=== PATIENT | male | born 1960 | race African-American/Black ===

== ENCOUNTER 2017-03-10 17:34 | Emergency (ER) | payer OTHER ==
[~2017-03-10] VITALS: Ht 177.8 cm; Wt 92.5 kg
[2017-03-10 18:36] VITALS: BP 134/93
[2017-03-10 18:40] LABS: BILIRUBIN,URINE MODERATE (NEG); GLUCOSE,URINE NEGATIVE (NEG); NITRITE,URINE POSITIVE (NEG); PH,URINE 5.5; PROTEIN,URINE NEGATIVE (NEG-TRACE)
--- NOTE | 2017-03-10 18:48 | PHYS DOC ---
Adult General Chief Complaint Chief Complaint: ABDOMINAL PAIN HPI HPI Patient is a 56 year old gentleman who has no significant past medical history who presents here today secondary to abdominal pain that is greatest in the suprapubic region. Patient reports he had abdominal pain now for approximately 4 month. Patient reports that he is gotten a couple x-rays recently last one being today by his primary care physician which revealed that he was for what he describes full stool and was sent here secondary to assistance with hydration. Patient denies any history of hypertension diabetes liver longer kidney pals. Patient has any surgeries in the past. Patient reports he drinks daily. Patient reports that lasted for approximate 4 in the morning today. Patient denies any tobacco or drugs. Patient is allergic to penicillin and morphine. Eyes any diagnosis of any alcohol related liver disease in the past. Patient reports she's had upper and lower GI scope in the past that revealed polyps but no other acute pathology. Patient denies any fevers shakes chills. Patient reports she's had nausea vomiting for the last 2-3 days and has been unable able to keep down liquids. Patient reports she's had diarrhea over the last couple days. Patient reports 2 loose bowel movements today. Patient reports that he was sent in by his primary care physician to assist with hydration and assist with giving him mag citrate. She did not feel that he will be able to keep down Gatorade and mag citrate as an outpatient. Patient denies any chest pain or shortness of breath. Patient has any cough cold or runny nose. Patient reports he does have hayfever and has had a fever symptoms over the last several days. Any new medications. Patient denies any new over-the- counter medications. Patient has any melena or bright red blood per rectum. Patient denies any coffee-ground emesis or hematochezia. Patient's physical exam was unremarkable. Patient's abdomen was soft nontender no rebound or guarding. Patient had normal active bowel sounds. Patient not have any tenderness to deep palpation. Patient's spleen and liver within normal size. She does not have any stigmata of end-stage liver disease or ascites. Patient does not present with any signs or symptoms of be consistent with an acute surgical abdomen. Patient's heart was regular rate and rhythm. His lungs were clear without any wheezing rales or rhonchi. His extremities revealed no clubbing cyanosis or edema. EKG reveals normal sinus rhythm at a heart rate of [address]-T wave abnormality is without any evidence of acute ST elevation DE as interpreted by Dr. Sears. Patient does have poor R-wave progression in leads V1 through V5 which could be consistent with an age-indeterminate anteroseptal wall DE likely old. Assessment and plan: This is a 56-year-old gentleman who presents here today complaining of abdominal discomfort with an abnormal obstruction series per his PCP. Although I do not have that report the patient describes an x-ray that is consistent with constipation rather than x-ray consistent with a small bowel obstruction. Given the patient's symptomatology and the abnormal x-ray and be sent to the ER patient today will have labs drawn including a CBC, chemistry, lipase and we will get a CT scan of the abdomen pelvis to further elaborate the cause of his discomfort. Patient does appear to be a heavy drinker and the question of whether not cirrhosis/liver disease might be triggering factor in the patient's symptoms. Patient's workup in ER has been unremarkable for any acute emergent issues. Patient's CT scan revealed ascites as well as an abnormal liver that will need to be further worked up as an outpatient. I have given a copy of the CT report to the patient and his have instructed him to follow-up with Dr. Quispe in the morning for further outpatient consultation with GI possible biopsy. I have consult did and paged Dr. Jolene jarquin and awaiting a callback to informed of the CT report and my instructions to the family. Patient is clinically hemodynamically stable at this time without any further need for any further acute emergent evaluation or inpatient evaluation. She'll be discharged home in stable condition. Review of Systems Review of Systems Constitutional: Denies fever or chills [] Eyes: Denies change in visual acuity, redness, or eye pain [] All other review systems are negative except as documented in the history of present illness portion. Current Medications Current Medications Current Medications Medications (Trade) Dose Ordered Sig/Mal Start Time Stop Time Status Last Admin Dose Admin Bisacodyl (Dulcolax Tab) 10 mg 1X ONCE 03/10/17 19:00 7 19:01 DC 03/10/17 19:01 10 MG Magnesium Citrate (Citroma) 296 ml 1X ONCE 03/10/17 19:00 7 19:01 DC 03/10/17 19:01 296 ML Ondansetron HCl (Zofran) 4 mg 1X ONCE 03/10/17 19:00 03/10/17 19:01 DC 03/10/17 19:01 4 MG Sodium Chloride 1,000 ml @ 1,000 mls/hr 1X ONCE 03/10/17 19:00 03/10/17 19:59 DC 03/10/17 19:00 1,000 MLS/HR Allergies Allergies Allergies Coded Allergies Type Severity Reaction Last Updated Verified Penicillins Allergy Unknown 03/10/17 Yes morphine Allergy Unknown 03/10/17 Yes Physical Exam Physical Exam Constitutional: Well developed, well nourished, no acute distress, non-toxic appearance. [] HENT: Normocephalic, atraumatic, bilateral external ears normal, oropharynx moist, no oral exudates, nose normal. [] Eyes: PERRLA, EOMI, conjunctiva normal, no discharge. [] Neck: Normal range of motion, no tenderness, supple, no stridor. [] Cardiovascular:Heart rate regular rhythm, no murmur [] Lungs & Thorax: Bilateral breath sounds clear to auscultation [] Abdomen: Bowel sounds normal, soft, no tenderness, no masses, no pulsatile masses. [] Skin: Warm, dry, no erythema, no rash. [] Back: No tenderness, no CVA tenderness. [] Extremities: No tenderness, no cyanosis, no clubbing, ROM intact, no edema. [] Neurologic: Alert and oriented X 3, normal motor function, normal sensory function, no focal deficits noted. [] Psychologic: Affect normal, judgement normal, mood normal. [] Current Patient Data Vital Signs Vital Signs Date Time Temp Pulse Resp B/P (MAP) Pulse Ox O2 Delivery O2 Flow Rate FiO2 03/10/17 18:36 99.1 96 20 134/93 (107) 98 Room Air 99.1 Lab Values Laboratory Tests Test 03/10/17 18:20 03/10/17 18:40 Urine Collection Type Void Urine Color [place] Urine Clarity Clear Urine pH 5.5 Urine Specific [place] 1.020 Urine Protein Negative mg/dL (NEG-TRACE) Urine Glucose (UA) Negative mg/dL (NEG) Urine Ketones (Stick) 40 mg/dL (NEG) Urine Blood Negative (NEG) Urine Nitrite Positive (NEG) Urine Bilirubin Moderate (NEG) Urine Urobilinogen Dipstick 2.0 mg/dL (0.2 mg/dL) Urine Leukocyte Esterase Small (NEG) Urine RBC 0 /HPF (0-2) Urine WBC 1-4 /HPF (0-4) Urine Squamous Epithelial Cells Few /LPF Urine Bacteria Moderate /HPF (0-FEW) Urine Hyaline Casts Few /HPF Urine Mucus Mod /LPF White Blood Count 11.2 x10^3/uL (4.0-11.0) H Red Blood Count 4.34 x10^6/uL (4.30-5.70) Hemoglobin 14.4 g/dL (13.0-17.5) Hematocrit 41.7 % (39.0-53.0) Mean Corpuscular Volume 96 fL (79-100) Mean Corpuscular Hemoglobin 33 pg (25-35) Mean Corpuscular Hemoglobin Concent 34 g/dL (31-37) Red Cell Distribution Width 13.8 % (11.5-14.5) Platelet Count 215 x10^3/uL (140-400) Neutrophils (%) (Auto) 75 % (31-73) H Lymphocytes (%) (Auto) 15 % (24-48) L Monocytes (%) (Auto) 9 % (0-9) Eosinophils (%) (Auto) 0 % (0-3) Basophils (%) (Auto) 0 % (0-3) Neutrophils # (Auto) 8.4 x10^3uL (1.8-7.7) H Lymphocytes # (Auto) 1.7 x10^3/uL (1.0-4.8) Monocytes # (Auto) 1.0 x10^3/uL (0.0-1.1) Eosinophils # (Auto) 0.0 x10^3/uL (0.0-0.7) Basophils # (Auto) 0.0 x10^3/uL (0.0-0.2) Sodium Level 143 mmol/L (136-145) Potassium Level 3.6 mmol/L (3.5-5.1) Chloride Level 104 mmol/L (98-107) Carbon Dioxide Level 29 mmol/L (21-32) Anion Gap 10 (6-14) Blood Urea Nitrogen 6 mg/dL (8-26) L Creatinine 1.0 mg/dL (0.7-1.3) Estimated GFR (Cockcroft-Gault) 94.2 BUN/Creatinine Ratio 6 (6-20) Glucose Level 105 mg/dL (70-99) H Calcium Level 8.1 mg/dL (8.5-10.1) L Total Bilirubin 2.9 mg/dL (0.2-1.0) H Aspartate Amino Transferase (AST) 67 U/L (15-37) H Alanine Aminotransferase (ALT) 21 U/L (16-63) Alkaline Phosphatase 290 U/L (46-116) H Total Protein 6.7 g/dL (6.4-8.2) Albumin 2.9 g/dL (3.4-5.0) L Albumin/Globulin Ratio 0.8 (1.0-1.7) L Lipase 132 U/L (73-393) Laboratory Tests 03/10/17 18:40 Laboratory Tests 03/10/17 18:40 Microbiology 03/10/17 Urine Culture - Final, Complete 03/10/17 Urine Culture Result 1 (PHUONG) - Final, Complete EKG EKG [] Radiology/Procedures Radiology/Procedures [] Course & Med Decision Making Course & Med Decision Making Pertinent Labs and Imaging studies reviewed. (See chart for details) [] Dragon Disclaimer Dragon Disclaimer This electronic medical record was generated, in whole or in part, using a voice recognition dictation system. Departure Departure Impression: Primary Impression: Abdominal pain Additional Impressions: Ascites Liver disease Elevated bilirubin Disposition: HOME, SELF-CARE Condition: IMPROVED Referrals: HELEN QUISPE Jr, MD (PCP) Patient Instructions: Abdominal Pain (Nonspecific) Additional Instructions: Please follow up with her doctor for further evaluation of your abnormal CT scan and ascites any her abdomen. Return the ER for any further concerns questions or worsening symptoms. Scripts Ondansetron (ZOFRAN ODT) 4 Mg Tab.rapdis 1 TAB SL Q6HRS Y for NAUSEA, #12 TAB Prov: BELKIS GUZMÁN MD 03/10/17 Problem Qualifiers BELKIS GUZMÁN MD Mar 10, 2017 18:48
[2017-03-10 18:49] LABS: BACTERIA,URINE MODERATE /HPF (0-FEW); RBC,URINE 0 /HPF (0-2); SQUAMOUS EPITHELIAL CELL,UR FEW /LPF
[2017-03-10 18:55] LABS: BASO % 0 % (0-3); EOS % 0 % (0-3); HEMATOCRIT 41.7 % (39.0-53.0); HEMOGLOBIN 14.4 g/dL (13.0-17.5); LYMPH # 1.7 x10^3/uL (1.0-4.8); LYMPH % 15 % (24-48); MEAN CORPUSCULAR HEMOGLOBIN 33 pg (25-35); MEAN CORPUSCULAR HGB CONC 34 g/dL (31-37); MEAN CORPUSCULAR VOLUME 96 fL (79-100); MONO % 9 % (0-9); NEUT % 75 % (31-73); PLATELET COUNT 215 x10^3/uL (140-400); RED BLOOD COUNT 4.34 x10^6/uL (4.30-5.70); RED CELL DISTRIBUTION WIDTH 13.8 % (11.5-14.5); WHITE BLOOD COUNT 11.2 x10^3/uL (4.0-11.0)
[2017-03-10] MEDS ORDERED: IV NORMAL SALINE 1000ML BAG 1,000 ML IV ONE (19:00)
[2017-03-10] MEDS ORDERED: MAGNESIUM CITRATE 296 ML SOLUTION. PO ONE (19:00)
[2017-03-10] MEDS ORDERED: ONDANSETRON PF 4 MG/2 ML VIAL. IV ONE (19:00)
[2017-03-10] MEDS ORDERED: BISACODYL 5 MG TABLET.DR. PO ONE (19:00)
[2017-03-10 19:05] LABS: CALCIUM 8.1 mg/dL (8.5-10.1); GFR 94.2; POTASSIUM 3.6 mmol/L (3.5-5.1)
[2017-03-10 19:12] LABS: ALBUMIN 2.9 g/dL (3.4-5.0); ALBUMIN/GLOBULIN RATIO 0.8 (1.0-1.7); TOTAL BILIRUBIN 2.9 mg/dL (0.2-1.0); TOTAL PROTEIN 6.7 g/dL (6.4-8.2)
--- NOTE | 2017-03-10 19:17 | RAD ---
Abdominal and Pelvis CT, Without Contrast: History: Worsening the mid abdominal pain. Comparison: None. Procedure: Axial images are obtained of the abdomen and pelvis, without IV or oral contrast. CT Abdomen without Contrast: Findings: Evaluation of solid organs is limited without contrast. Evaluation of stomach and bowel is limited without oral contrast. Liver: Small hypoattenuating and diffusely heterogeneous. Spleen: Normal. Pancreas: Normal. Adrenal Glands: Normal. Kidneys: Normal. There is no free air. There is moderate ascites.. There is no lymphadenopathy. Impression: Please see CT Pelvis without Contrast. End Impression. CT Pelvis without Contrast: Findings: The urinary bladder appears normal. There is no free fluid. There is no lymphadenopathy. There is no pericolonic inflammation identified. The appendix is not seen. Impression: 1. Moderate ascites. 2. Heterogeneity and hypoattenuation of the liver is likely secondary to fatty infiltration however hepatocellular disease including hepatocellular carcinoma is possible and correlation with alpha-fetoprotein is recommended. End impression PQRS Compliance Statement: One or more of the following individualized dose reduction techniques were utilized for this examination: 1. Automated exposure control 2. Adjustment of the mA and/or kV according to patient size 3. Use of iterative reconstruction technique Electronically signed by: Giuseppe Roberts III, MD (03/10/2017 7:13 PM) [facility]
[2017-03-10] MEDS ORDERED: ONDA4TAB10 SL (20:20)
--- NOTE | 2017-03-11 04:52 | EKG ---
[facility] [address] [place] [address] Test Date: 2017-03-10 Test Time: 18:39:53 Pat Name: HELEN SAHNI Department: Room: Gender: M [employer]: : [id number] Requested By: BELKIS GUZMÁN Order Number: [id number] Reading MD: Measurements Intervals [place] Rate: 88 P: 15 [place]: 132 QRS: -28 QRSD: 76 T: -7 QT: 376 QTc: 459 Interpretive Statements SINUS RHYTHM POSSIBLE LEFT ATRIAL ABNORMALITY LEFTWARD AXIS QRS(T) CONTOUR ABNORMALITY CONSISTENT WITH SEPTAL INFARCT AGE UNDETERMINED ABNORMAL ECG RI6.01 No previous ECG available for comparison
== END 2017-03-10 20:30 | disposition home or self-care (01) ==
LOC: ER 17:34
DX: R10.30 Lower abdominal pain, unspecified (principal); R18.8 Other ascites; K76.9 Liver disease, unspecified; R74.8 Abnormal levels of other serum enzymes; R11.2 Nausea with vomiting, unspecified; R19.7 Diarrhea, unspecified; F10.10 Alcohol abuse, uncomplicated; Z88.0 Allergy status to penicillin; Z88.5 Allergy status to narcotic agent
CPT/HCPCS: 36415; 74176; 80053; 81001; 83690; 85027; 87086; 93005; 96361; 96374; 99285; J2405; J7030